=== PATIENT | male | born 2000 | race American Indian/Alaskan Native ===

== ENCOUNTER 2019-09-25 21:37 | Emergency (ER) | payer OTHER ==
[2019-09-25 22:07] VITALS: BP 142/66
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
[2019-09-25] MEDS ORDERED: IBUPROFEN 800 MG TAB PO ONE (23:20)
[2019-09-25] MEDS ORDERED: CYCLOBENZAPRINE 10 MG TAB PO ONE (23:20)
== END 2019-09-26 00:35 | disposition home or self-care (01) ==
LOC: ED 21:37
DX: S39.012A Strain of muscle, fascia and tendon of lower back, initial encounter (principal); F17.200 Nicotine dependence, unspecified, uncomplicated; F10.10 Alcohol abuse, uncomplicated; Z79.899 Other long term (current) drug therapy; V49.59XA Passenger injured in collision with other motor vehicles in traffic accident, initial encounter; Y93.89 Activity, other specified; Y92.410 Unspecified street and highway as the place of occurrence of the external cause; Y99.8 Other external cause status

== ENCOUNTER 2019-10-01 01:23 | Emergency (ER) | payer SELFPAY ==
--- NOTE | 2019-10-01 02:28 | XRay Report ---
CHEST 1 VIEW 10/01/2019 2:00 AM INDICATION / CLINICAL INFORMATION: Chest Pain. COMPARISON: None available. FINDINGS: SUPPORT DEVICES: None. HEART / MEDIASTINUM: No significant abnormality. LUNGS / PLEURA: No significant pulmonary or pleural abnormality. No pneumothorax. The left hemidiaphr agm is elevated. ADDITIONAL FINDINGS: No significant additional findings. IMPRESSION: 1. No acute abnormality of the chest. Signer Name: Stevie Belle MD Signed: 10/01/2019 2:23 AM Workstation Name: [id number]
[2019-10-01] MEDS ORDERED: IBUPROFEN 800 MG TAB PO ONE (04:08)
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
[2019-10-01 05:19] VITALS: BP 138/84
== END 2019-10-01 05:05 | disposition home or self-care (01) ==
LOC: ED 01:23
DX: S20.219A Contusion of unspecified front wall of thorax, initial encounter (principal); V87.7XXA Person injured in collision between other specified motor vehicles (traffic), initial encounter; Y93.89 Activity, other specified; Y92.410 Unspecified street and highway as the place of occurrence of the external cause; Y99.8 Other external cause status
CPT/HCPCS: 71045; 93005; 93010